=== PATIENT | male | born 1980 | race Two or more races ===

== ENCOUNTER 2022-10-18 22:11 | Emergency (ER) | payer OTHER ==
[~2022-10-18] VITALS: Ht 182.9 cm; Wt 77.1 kg
== END 2022-10-19 | disposition home or self-care (01) ==
LOC: ER 22:11
DX: S63.267A Dislocation of metacarpophalangeal joint of left little finger, initial encounter (principal); X58.XXXA Exposure to other specified factors, initial encounter; Y93.9 Activity, unspecified; Y92.9 Unspecified place or not applicable; Y99.9 Unspecified external cause status